=== PATIENT | male | born 1980 ===

== ENCOUNTER 2016-10-21 17:22 | Emergency (ER) | payer SELFPAY ==
[~2016-10-21] VITALS: Ht 172.7 cm; Wt 62.7 kg
[2016-10-21 17:34] VITALS: Ht 172.7 cm; Wt 62.7 kg
== END 2016-10-21 21:38 | disposition left against medical advice (07) ==
LOC: FTE 17:22
DX: Z53.21 Procedure and treatment not carried out due to patient leaving prior to being seen by health care provider (principal)